=== PATIENT | male | born 2000 | race Two or more races ===

== ENCOUNTER 2019-02-18 16:45 | Emergency (ER) | payer SELFPAY ==
[~2019-02-18] VITALS: Ht 185.4 cm; Wt 125.5 kg
[2019-02-18 17:42] VITALS: BP 137/76
--- NOTE | 2019-02-18 18:36 | NUR ---
DC EDUCATION PROVIDED, PT DEMONSTRATES UNDERSTANDING. PT AMBULATED STEADILY TO DC WITH RN AND FAMILY. FAMILY TO TRANSPORT PT HOME.
== END 2019-02-18 18:37 | disposition home or self-care (01) ==
LOC: ED 18:15
DX: S93.402A Sprain of unspecified ligament of left ankle, initial encounter (principal); F17.200 Nicotine dependence, unspecified, uncomplicated; X50.1XXA Overexertion from prolonged static or awkward postures, initial encounter; Y93.89 Activity, other specified; Y92.009 Unspecified place in unspecified non-institutional (private) residence as the place of occurrence of the external cause; Y99.8 Other external cause status
CPT/HCPCS: 99283

== ENCOUNTER 2019-09-11 18:20 | Emergency (ER) | payer OTHER ==
[~2019-09-11] VITALS: Ht 185.4 cm; Wt 127.8 kg
[2019-09-11 18:26] VITALS: BP 147/63
--- NOTE | 2019-09-11 18:49 | NUR ---
REPORT GIVEN TO ARIC.
[2019-09-11] MEDS ORDERED: HYDROcodone/APAP 5/325 TABLET ONE ×2 (18:56→18:58)
[2019-09-11] MEDS ORDERED: HYDROcodone/APAP 5/325 TABLET PO ONE (19:00)
--- NOTE | 2019-09-11 19:01 | NUR ---
ASSUMED CARE OF PT, MEDICATED PER JUN. PT RESTING ON GURNEY WATCHING TV, REPORTS PAIN 11/10.
[2019-09-11] MEDS ORDERED: SILVER SULF. CRM 1% , 25GM ONE (19:02)
--- NOTE | 2019-09-11 19:12 | NUR ---
EMT AT BEDSIDE FOR DRESSING.
[2019-09-11] MEDS ORDERED: SILVER SULF. CRM 1% , 25GM TP ONE (20:00)
== END 2019-09-11 20:19 | disposition home or self-care (01) ==
LOC: ED 20:14
DX: T23.171A Burn of first degree of right wrist, initial encounter (principal); T22.111A Burn of first degree of right forearm, initial encounter; T23.172A Burn of first degree of left wrist, initial encounter; T22.112A Burn of first degree of left forearm, initial encounter; T23.102A Burn of first degree of left hand, unspecified site, initial encounter; T31.0 Burns involving less than 10% of body surface; X08.8XXA Exposure to other specified smoke, fire and flames, initial encounter; Y93.89 Activity, other specified; Y92.098 Other place in other non-institutional residence as the place of occurrence of the external cause; Y99.8 Other external cause status
CPT/HCPCS: 16020; 99283

== ENCOUNTER 2020-02-03 07:35 | Emergency (ER) | payer OTHER ==
[~2020-02-03] VITALS: Ht 185.4 cm; Wt 119.1 kg
--- NOTE | 2020-02-03 08:31 | NUR ---
PT AMBULATORY TO ROOM. VSS, C/O LOSS OF APPETITE, N/V WITH DRY HEAVES, DIARRHEA, CHILLS, SWEATS FOR THE PAST FEW DAYS. DR AREVALO AT BEDSIDE. PT ASSESSMENT & POC DISCUSSED AND QUESTIONS ANSWERED. CALL LIGHT W/I REACH
[2020-02-03] MEDS ORDERED: ONDANSETRON 2MG/ML, 2ML ONE (08:44)
--- NOTE | 2020-02-03 08:46 | NUR ---
PIV EST AND PT MED NOTED. IVF INFUSING W/O DIFFICULTY. CALL LIGHT W/I REACH
[2020-02-03 08:56] LABS: BASOPHILS % (AUTO) 0 % (0-1); EOSINOPHILS % (AUTO) 0 % (1-7); LYMPHOCYTES % (AUTO) 17 % (22-44); MEAN CORPUSCULAR HEMOGLOBIN 29.3 pg (27.5-34.5); MEAN CORPUSCULAR HGB CONC 33.1 g/dL (33.2-36.2); MEAN PLATELET VOLUME 7.9 fL (7.4-10.4); MONOCYTES % (AUTO) 11 % (2-9); NEUTROPHILS % (AUTO) 72 % (42-75); PLATELET COUNT 196 x10^3/uL (130-400); RED BLOOD COUNT 5.69 x10^6/uL (4.38-5.82); RED CELL DISTRIBUTION WIDTH 13.4 % (9.4-14.8)
[2020-02-03 08:58] LABS: MD NO
[2020-02-03] MEDS ORDERED: SODIUM CHLORIDE FLUSH 10ML SYR IVF ONE (09:00)
[2020-02-03] MEDS ORDERED: ONDANSETRON 2MG/ML, 2ML IVPush ONE (09:00)
[2020-02-03] MEDS ORDERED: SODIUM CHLORIDE 0.9% 1,000ML IVBOLUS ONE (09:00)
[2020-02-03 09:06] LABS: ALANINE AMINOTRANSFERASE 20 U/L (12-78); ALBUMIN 4.3 g/dL (3.4-5.0); ANION GAP 9 mmol/L (5-15); CALCIUM 9.1 mg/dL (8.5-10.1); CHLORIDE 112 mmol/L (98-107); CREATININE 0.97 mg/dL (0.7-1.3)
[2020-02-03 09:09] LABS: ALKALINE PHOSPHATASE 79 U/L (45-117); BILIRUBIN,TOTAL 0.6 mg/dL (0.2-1.0); TOTAL PROTEIN 8.8 g/dL (6.4-8.2)
--- NOTE | 2020-02-03 09:36 | NUR ---
LABS RESULTED, IVF INFUSED. PT VSS, AND PT RPTS "FEELING A LITTLE BETTER" po challenge of sprite and saltines provided.
[2020-02-03 09:37] VITALS: BP 131/71
--- NOTE | 2020-02-03 10:10 | NUR ---
Patient/Caregiver given discharge instructions and they have confirmed that they understand the instructions. Patient ambulatory with steady gait.
== END 2020-02-03 10:36 | disposition home or self-care (01) ==
LOC: ED 08:46
DX: U07.1 COVID-19 (principal); R11.2 Nausea with vomiting, unspecified; R19.7 Diarrhea, unspecified; E86.0 Dehydration; F17.200 Nicotine dependence, unspecified, uncomplicated
CPT/HCPCS: 36415; 80053; 83690; 85025; 87635; 96361; 96374; 99283; J2405; J7030

== ENCOUNTER 2020-02-05 10:22 | Emergency (ER) | payer OTHER ==
[~2020-02-05] VITALS: Ht 185.4 cm; Wt 114.8 kg
--- NOTE | 2020-02-05 10:43 | NUR ---
PT AMBULATED BACK TO ROOM, RESTING IN [facility], NO COMPLAINTS AT THIS TIME.
[2020-02-05] MEDS ORDERED: PROMETHAZINE 25 MG/ML, 1ML ONE (10:56)
[2020-02-05] MEDS ORDERED: PROMETHAZINE 25 MG/ML, 1ML IM ONE (11:00)
[2020-02-05 11:41] LABS: BASOPHILS % (AUTO) 1 % (0-1); EOSINOPHILS % (AUTO) 0 % (1-7); LYMPHOCYTES % (AUTO) 11 % (22-44); MEAN CORPUSCULAR HEMOGLOBIN 29.2 pg (27.5-34.5); MEAN CORPUSCULAR HGB CONC 33.1 g/dL (33.2-36.2); MEAN PLATELET VOLUME 7.8 fL (7.4-10.4); MONOCYTES % (AUTO) 12 % (2-9); NEUTROPHILS % (AUTO) 76 % (42-75); PLATELET COUNT 192 x10^3/uL (130-400); RED BLOOD COUNT 5.78 x10^6/uL (4.38-5.82); RED CELL DISTRIBUTION WIDTH 13.5 % (9.4-14.8)
[2020-02-05 11:55] LABS: MD NO
[2020-02-05 11:57] LABS: ALBUMIN 4.3 g/dL (3.4-5.0); ANION GAP 6 mmol/L (5-15); CALCIUM 9.1 mg/dL (8.5-10.1); CHLORIDE 112 mmol/L (98-107)
[2020-02-05 12:02] LABS: ALANINE AMINOTRANSFERASE 20 U/L (12-78); ALKALINE PHOSPHATASE 78 U/L (45-117); BILIRUBIN,TOTAL 0.7 mg/dL (0.2-1.0); CREATININE 0.99 mg/dL (0.7-1.3); TOTAL PROTEIN 8.8 g/dL (6.4-8.2); TROPONIN I < 0.015 ng/mL (0.000-0.045)
[2020-02-05 12:39] LABS: MICROSCOPIC INDICATED
[2020-02-05 13:50] VITALS: BP 137/76
== END 2020-02-05 13:52 | disposition home or self-care (01) ==
LOC: ED 12:46
DX: R10.31 Right lower quadrant pain (principal); R10.11 Right upper quadrant pain; R07.89 Other chest pain; R11.10 Vomiting, unspecified; R19.7 Diarrhea, unspecified; R94.31 Abnormal electrocardiogram [ECG] [EKG]; Z87.891 Personal history of nicotine dependence
CPT/HCPCS: 36415; 71045; 80053; 81001; 84484; 85025; 93005; 96372; 99285; J2550

== ENCOUNTER 2020-02-26 21:53 | Emergency (ER) | payer OTHER ==
[~2020-02-26] VITALS: Ht 185.4 cm; Wt 119.0 kg
[2020-02-26 22:23] LABS: BASOPHILS % (AUTO) 1 % (0-1); EOSINOPHILS % (AUTO) 1 % (1-7); LYMPHOCYTES % (AUTO) 24 % (22-44); MEAN CORPUSCULAR HEMOGLOBIN 29.6 pg (27.5-34.5); MEAN CORPUSCULAR HGB CONC 33.6 g/dL (33.2-36.2); MONOCYTES % (AUTO) 7 % (2-9); NEUTROPHILS % (AUTO) 67 % (42-75); PLATELET COUNT 208 x10^3/uL (130-400)
[2020-02-26 22:35] LABS: ANION GAP 8 mmol/L (5-15); CALCIUM 8.7 mg/dL (8.5-10.1); CHLORIDE 111 mmol/L (98-107)
[2020-02-26 22:40] LABS: ALANINE AMINOTRANSFERASE 25 U/L (12-78); ALKALINE PHOSPHATASE 94 U/L (45-117); BILIRUBIN,TOTAL 0.3 mg/dL (0.2-1.0); CREATININE 0.95 mg/dL (0.7-1.3); TROPONIN I < 0.015 ng/mL (0.000-0.045)
[2020-02-26 23:12] LABS: MD NO
--- NOTE | 2020-02-27 00:05 | NUR ---
PT COMPLAINING OF COLDNESS AND TINGLING TO LEFT ARM EARLIER THIS EVENING. SYMPTOMS HAVE IMPROVED. VSS. PT WAITING TO BE EVALUATED BY ERP. CALL LIGHT IN REACH
--- NOTE | 2020-02-27 00:37 | NUR ---
PT BACK FROM CT
--- NOTE | 2020-02-27 01:54 | NUR ---
Patient given discharge instructions and they have confirmed that they understand the instructions. Patient ambulatory with steady gait.
[2020-02-27 01:55] VITALS: BP 121/73
== END 2020-02-27 02:00 | disposition home or self-care (01) ==
LOC: ED 02-27 01:47
DX: R20.2 Paresthesia of skin (principal); R07.89 Other chest pain; R51.9 Headache, unspecified; R42 Dizziness and giddiness; R20.0 Anesthesia of skin
CPT/HCPCS: 36415; 70450; 71045; 80053; 84484; 85025; 93005; 99285